=== PATIENT | female | born 1950 | race Caucasian/White ===

== ENCOUNTER 2016-10-08 07:10 | Day surgery (SDC) | payer OTHER ==
[~2016-10-08] VITALS: Ht 167.6 cm; Wt 83.0 kg
[~2016-10-08 07:10] MED LIST: BG MC; CIPROFLOXACIN250 M2 PO; ECO81 PO; LAC PO; LANTUS SOLOS100 U/M1 SQ; LEVOTHYROXIN0.025 M2 PO; LIPI10 PO; OXYBUTYNIN CHLOR5 MG PO; ZES20 PO
[2016-10-08 07:48] VITALS: BP 144/72
[2016-10-08 14:30] VITALS: BP 159/85
== END 2016-10-08 11:45 | disposition home or self-care (01) ==
LOC: DS 07:10 → OR 09:30 → DS 11:45
PROVIDERS: Internal Medicine
PROC: 06L34CZ Occlusion of Esophageal Vein with Extraluminal Device, Percutaneous Endoscopic Approach (ICD-10-PCS; principal; 2016-10-08 09:30)
PROC: 0DB68ZX Excision of Stomach, Via Natural or Artificial Opening Endoscopic, Diagnostic (ICD-10-PCS; 2016-10-08 09:30)
DX: K74.69 Other cirrhosis of liver (principal); I85.10 Secondary esophageal varices without bleeding; K75.81 Nonalcoholic steatohepatitis (NASH); K76.6 Portal hypertension; K31.89 Other diseases of stomach and duodenum; K29.70 Gastritis, unspecified, without bleeding; C73 Malignant neoplasm of thyroid gland; I10 Essential (primary) hypertension; E11.9 Type 2 diabetes mellitus without complications; Z85.43 Personal history of malignant neoplasm of ovary; Z68.29 Body mass index [BMI] 29.0-29.9, adult
CPT/HCPCS: 43235; J1200; J1610; J2250; J2310; J3010; J3490

== ENCOUNTER → 2017-01-16 | Outpatient (CLI) | payer OTHER | END | disposition home or self-care (01) | LOC: US 09:00 | PROC: BW40ZZZ Ultrasonography of Abdomen (ICD-10-PCS; principal; 2017-01-16) | DX: K70.31 Alcoholic cirrhosis of liver with ascites (principal) ==

== ENCOUNTER 2017-02-18 07:27 | Day surgery (SDC) | payer OTHER ==
[~2017-02-18] VITALS: Ht 167.6 cm; Wt 82.5 kg
[2017-02-18 07:54] VITALS: BP 129/72
[2017-02-18 11:25] VITALS: BP 166/79
== END 2017-02-18 11:45 | disposition home or self-care (01) ==
LOC: GI 07:27
PROVIDERS: Internal Medicine
PROC: 06L38CZ Occlusion of Esophageal Vein with Extraluminal Device, Via Natural or Artificial Opening Endoscopic (ICD-10-PCS; principal; 2017-02-18 11:30)
DX: K75.81 Nonalcoholic steatohepatitis (NASH) (principal); K31.89 Other diseases of stomach and duodenum; K76.6 Portal hypertension; I85.10 Secondary esophageal varices without bleeding; E11.9 Type 2 diabetes mellitus without complications; I10 Essential (primary) hypertension; Z85.850 Personal history of malignant neoplasm of thyroid; Z68.29 Body mass index [BMI] 29.0-29.9, adult
CPT/HCPCS: 43235; J1200; J1610; J2250; J2310; J2405; J3010; J3490

== ENCOUNTER 2017-06-24 08:15 | Day surgery (SDC) | payer OTHER ==
[~2017-06-24] VITALS: Ht 167.6 cm; Wt 81.2 kg
[2017-06-24 09:09] VITALS: BP 149/71
[2017-06-24 13:57] VITALS: BP 156/83
== END 2017-06-24 13:20 | disposition home or self-care (01) ==
LOC: GI 08:15 → OR 10:30 → GI 10:30
PROVIDERS: Internal Medicine
PROC: 06L38CZ Occlusion of Esophageal Vein with Extraluminal Device, Via Natural or Artificial Opening Endoscopic (ICD-10-PCS; principal; 2017-06-24 10:30)
DX: I85.01 Esophageal varices with bleeding (principal); K31.9 Disease of stomach and duodenum, unspecified; K74.69 Other cirrhosis of liver; K75.81 Nonalcoholic steatohepatitis (NASH); R10.13 Epigastric pain; C73 Malignant neoplasm of thyroid gland; I10 Essential (primary) hypertension; E11.9 Type 2 diabetes mellitus without complications; E66.9 Obesity, unspecified; Z68.28 Body mass index [BMI] 28.0-28.9, adult
CPT/HCPCS: 43235; 82962; J1200; J1610; J2250; J2310; J3010; J3490

== ENCOUNTER 2017-08-09 12:37 | Emergency (ER) | payer OTHER ==
[~2017-08-09] VITALS: Ht 167.6 cm; Wt 80.3 kg
[2017-08-09 12:44] VITALS: BP 125/72; Ht 167.6 cm; Wt 80.3 kg
== END 2017-08-09 12:44 | disposition left against medical advice (07) ==
LOC: ED 12:37
DX: Z53.21 Procedure and treatment not carried out due to patient leaving prior to being seen by health care provider (principal)

== ENCOUNTER 2017-09-05 16:43 | Emergency (ER) | payer OTHER ==
[~2017-09-05] VITALS: Ht 167.6 cm; Wt 81.2 kg
[2017-09-05 16:58] VITALS: Ht 167.6 cm; Wt 81.2 kg
[2017-09-05 17:51] LABS: BASOPHIL % 0.8 % (0-2)
[2017-09-05 17:55] LABS: PLATELET COUNT 68 x10^3mcL (130-400); RED CELL DISTRIBUTION WIDTH 16.6 % (11.5-14.5)
[2017-09-05 17:59] LABS: CALCIUM 8.9 mg/dL (8.5-10.1); CARBON DIOXIDE 24.7 mmol/L (21-32); CHLORIDE SERUM 111 mmol/L (98-107); CREATININE SERUM 0.5 mg/dL (0.6-1.0); GFR1 > 60 mL/min; GLUCOSE SERUM 85 mg/dL (74-106); POTASSIUM SERUM 3.8 mmol/L (3.5-5.1); SODIUM SERUM 143 mmol/L (136-145)
[2017-09-05 18:13] LABS: ALBUMIN 3.5 g/dL (3.4-5.0); ALKALINE PHOSPHATASE 133 U/L (46-116); ALT/SGPT 32 U/L (14-59); AST/SGOT 27 U/L (15-37); BILIRUBIN TOTAL 1.4 mg/dL (0.20-1.00); LIPASE 199 IU/L (73-393); TOTAL PROTEIN, SERUM 6.9 g/dL (6.4-8.2)
[2017-09-05 18:14] LABS: AMYLASE 141 U/L (25-115)
[2017-09-05 18:16] LABS: microscopic required? YES; urine erythrocyte NEGATIVE (NEGATIVE)
[2017-09-05 18:48] VITALS: BP 140/74
== END 2017-09-05 17:00 | disposition home or self-care (01) ==
LOC: ED 16:43
PROVIDERS: Emergency Medicine
DX: R10.11 Right upper quadrant pain (principal); K74.60 Unspecified cirrhosis of liver; D69.6 Thrombocytopenia, unspecified; E11.9 Type 2 diabetes mellitus without complications; Z90.710 Acquired absence of both cervix and uterus
CPT/HCPCS: 36415; 83880

== ENCOUNTER 2018-04-28 07:12 | Day surgery (SDC) | payer OTHER ==
[~2018-04-28] VITALS: Ht 167.6 cm; Wt 81.6 kg
[2018-04-28 08:35] VITALS: BP 138/74
[2018-04-28 11:13] VITALS: BP 154/82
== END 2018-04-28 11:05 | disposition home or self-care (01) ==
LOC: GI → OR 08:30 → GI 11:05
PROVIDERS: Internal Medicine
PROC: 06L38CZ Occlusion of Esophageal Vein with Extraluminal Device, Via Natural or Artificial Opening Endoscopic (ICD-10-PCS; principal; 2018-04-28 08:30)
DX: K75.81 Nonalcoholic steatohepatitis (NASH) (principal); I85.10 Secondary esophageal varices without bleeding; K76.6 Portal hypertension; K31.89 Other diseases of stomach and duodenum; K29.70 Gastritis, unspecified, without bleeding; E11.9 Type 2 diabetes mellitus without complications; I10 Essential (primary) hypertension; C73 Malignant neoplasm of thyroid gland; E66.9 Obesity, unspecified; Z68.29 Body mass index [BMI] 29.0-29.9, adult; Z79.4 Long term (current) use of insulin; Z80.6 Family history of leukemia; Z80.3 Family history of malignant neoplasm of breast
CPT/HCPCS: 43235; J1200; J1610; J2250; J2310; J2405; J3010; J3490

== ENCOUNTER 2018-11-22 15:47 | Emergency (ER) | payer OTHER ==
[~2018-11-22] VITALS: Ht 170.2 cm; Wt 82.1 kg
[2018-11-22 18:22] LABS: microscopic required? YES; urine erythrocyte NEGATIVE (NEGATIVE)
[2018-11-22 19:01] VITALS: BP 144/71
== END 2018-11-22 19:01 | disposition home or self-care (01) ==
LOC: ED 15:47
PROVIDERS: Emergency Medicine
DX: N39.0 Urinary tract infection, site not specified (principal); E11.9 Type 2 diabetes mellitus without complications; Z90.710 Acquired absence of both cervix and uterus
CPT/HCPCS: J0696